=== PATIENT | female | born 1980 | race Caucasian/White ===

== ENCOUNTER 2018-03-11 09:01 | Emergency (ER) | payer OTHER ==
[~2018-03-11] VITALS: Ht 180.3 cm; Wt 68.0 kg
[~2018-03-11 09:01] MED LIST: MUCINEX D1 TAB.SR1 PO; ORPH100T PO
[2018-03-11] MEDS ORDERED: [UNRECOGNIZED DRUG - OTHER] (09:17)
[2018-03-11] MEDS ORDERED: TUSSI-PRES LIQ118 ML (09:17)
== END 2018-03-11 10:59 | disposition home or self-care (01) ==
LOC: ER 09:01
DX: B34.9 Viral infection, unspecified (principal)

== ENCOUNTER 2019-05-28 07:45 | Day surgery (SDC) | payer OTHER ==
[~2019-05-28 07:45] MED LIST changes: +TUSSI-PRES LIQ118 ML; +[UNRECOGNIZED DRUG - OTHER]
[2019-05-28] MEDS ORDERED: MORGIDOX100 MG PO (12:17)
[2019-05-28] MEDS ORDERED: NAPR500T14 PO (12:18)
== END 2019-05-28 14:05 | disposition home or self-care (01) ==
LOC: CIR.AMB 07:45
DX: O02.1 Missed abortion (principal)

== ENCOUNTER → 2020-03-24 | Outpatient (CLI) | payer OTHER ==
[~2020-03-24] MED LIST changes: +MORGIDOX100 MG PO; +NAPR500T14 PO
== END | disposition home or self-care (01) ==
LOC: PRENATAL 13:00
PROVIDERS: ATTEND Obstetrics & Gynecology Maternal & Fetal Medicine
DX: O35.0XX1 Maternal care for (suspected) central nervous system malformation in fetus, fetus 1 (principal); O35.3XX1 Maternal care for (suspected) damage to fetus from viral disease in mother, fetus 1; O98.512 Other viral diseases complicating pregnancy, second trimester; O28.1 Abnormal biochemical finding on antenatal screening of mother; O09.522 Supervision of elderly multigravida, second trimester; Z36.89 Encounter for other specified antenatal screening; Z3A.19 19 weeks gestation of pregnancy

== ENCOUNTER → 2020-07-05 | Outpatient (CLI) | payer OTHER | END | disposition home or self-care (01) | LOC: PRENATAL 15:00 | PROVIDERS: ATTEND Obstetrics & Gynecology Maternal & Fetal Medicine | DX: O26.843 Uterine size-date discrepancy, third trimester (principal); O36.8131 Decreased fetal movements, third trimester, fetus 1; Z36.89 Encounter for other specified antenatal screening; Z3A.35 35 weeks gestation of pregnancy ==

== ENCOUNTER 2020-07-29 15:00 | Inpatient (IN) | payer OTHER ==
[~2020-07-29] VITALS: Ht 180.3 cm; Wt 88.9 kg
[2020-08-04] MEDS ORDERED: PRENATAL TABLE1 EAC1 PO (14:59)
[2020-08-07] MEDS ORDERED: IBUPROFEN600 MG PO (07:24)
[2020-08-07] MEDS ORDERED: CODE1TAB37 PO (07:25)
== END 2020-08-07 10:53 | disposition home or self-care (01) | DRG 788 ==
LOC: OB/GYN 08-04 13:58 → LDR 08-04 13:58 → O/R 08-04 18:21 → OB/GYN 08-04 18:48
PROVIDERS: ADMIT Obstetrics & Gynecology; ATTEND Obstetrics & Gynecology
PROC: 10907ZC Drainage of Amniotic Fluid, Therapeutic from Products of Conception, Via Natural or Artificial Opening (ICD-10-PCS; 2020-08-04)
PROC: 3E033VJ Introduction of Other Hormone into Peripheral Vein, Percutaneous Approach (ICD-10-PCS; 2020-08-04)
PROC: 4A1HXFZ Monitoring of Products of Conception, Cardiac Rhythm, External Approach (ICD-10-PCS; 2020-08-04)
PROC: 10D00Z1 Extraction of Products of Conception, Low, Open Approach (ICD-10-PCS; principal; 2020-08-04 17:00)
DX: O76 Abnormality in fetal heart rate and rhythm complicating labor and delivery (principal); O13.4 Gestational [pregnancy-induced] hypertension without significant proteinuria, complicating childbirth; Z3A.38 38 weeks gestation of pregnancy; Z37.0 Single live birth; Z20.822 Contact with and (suspected) exposure to COVID-19